=== PATIENT | male | born 1985 | race Caucasian/White ===

== ENCOUNTER 2017-10-27 18:58 | Inpatient (IN) | payer BC, OTHER ==
[~2017-10-27] VITALS: Ht 185.4 cm; Wt 78.0 kg
[2017-10-27 20:00] VITALS: BP 118/80
--- NOTE | 2017-10-27 20:10 | NUR ---
Pre-admission assessment Patient is a 32-year old, male, seen at intake, AAOx4, no SOB and with anxiety noted at this time. Discussed with patient admission policies of the unit. Patient is coherent and able to respond to questions appropriately. Patient reported that he is originally from [place], then moved to [place] and eventually ended up here in [facility]. Pt is ambulatory with steady gait. Pt reports that he has been using these substances daily: Heroin and Methamphetamine and weekly for Vicodin and Valium/Xanax. Vital signs taken and as follows: MV=239/78, P=97, O2 sat on RA=96%, RR=1, T=98.1. Pt verbalized instructions and teachings regarding disposal of narcotic and other controlled home meds, unit protocols such as taking of vital signs Q4H and handling and disposal of contraband. Addendum: 10/28/17 at 0139 by MARCUS SKAGGS RN RR=20
[2017-10-27] MEDS ORDERED: ONDANSETRON ODT 4 MG TAB.RAPDIS SL PRN (20:45)
[2017-10-27] MEDS ORDERED: METHOCARBAMOL 750 MG TABLET PO PRN (20:45)
[2017-10-27] MEDS ORDERED: MIRALAX 17 GM POWD.PACK PO PRN (20:45)
[2017-10-27] MEDS ORDERED: ONDANSETRON 4 MG/2 ML VIAL IM PRN (20:45)
[2017-10-27] MEDS ORDERED: LORAZEPAM 1 MG TABLET PO PRN ×2 (20:45)
[2017-10-27] MEDS ORDERED: MAG HYDROX/AL HYDROX/SIMETH 30 ML LIQUID UDC PO PRN (20:45)
[2017-10-27] MEDS ORDERED: diphenhydrAMINE 50 MG CAPSULE PO PRN (20:45)
[2017-10-27] MEDS ORDERED: BUPRENORPHINE HCL 2 MG TAB.SUBL SL PRN (20:45)
[2017-10-27] MEDS ORDERED: ACETAMINOPHEN 325 MG TABLET PO PRN (20:45)
[2017-10-27] MEDS ORDERED: CLONIDINE HCL 0.1 MG TABLET PO PRN (20:45)
[2017-10-27] MEDS ORDERED: LOPERAMIDE HCL 2 MG CAPSULE PO PRN (20:45)
[2017-10-27] MEDS ORDERED: MAGNESIUM HYDROXIDE 30 ML LIQUID UDC PO PRN (20:45)
[2017-10-27] MEDS ORDERED: LORAZEPAM 2 MG/1 ML VIAL IM PRN (20:45)
[2017-10-27] MEDS ORDERED: IBUPROFEN 600 MG TABLET PO PRN (20:45)
--- NOTE | 2017-10-27 20:45 | NUR ---
ADMISSION Patient is a 32-year old, male, admitted and escorted by BLACK TOP ROLLER at 2035 to unit. Patient appears intoxicated, verbalizing that he used around 1700 today (please see below for more details). Skin check done, no open skin noted. Patient denies Suicidal Ideation nor Homicidal Ideation. No edema noted. Pt is ambulatory with steady gait. Pt stands 6'1" and weighs 172 pounds per standing scale. Vital signs are as follows: BP-124/85, T-98.4, P-93, RR-20 and SPO2 on RA=98%. Patient is AAOx4 and with with anxiety and paranoia noted at this time. Pt verbalized, "I heard some people outside talking about. I don't like it."With flushed skin noted, especially on the face. Redirected patient and provided education. Lung sounds clear bilaterally upon auscultation. No cough noted and bowel sounds are present on all quadrants. PERRLA and pupils are 3 mm upon visual check. Pt reports being allergic to Amoxicillin, on Regular Diet and is Full Code. Pt denies any seizure history. Per pt, withdrawal symptoms are restless legs, anxiety, emotional volatility, depression, hot flushes, chills, goosebumps, generalized muscle pain, tremors and paranoia. Pt reports that he was sober for 9 months and relapsed 5 months ago due to issues with "everyday life and some relationships with family and friends." Pt informed that he is here to be detoxed "because my life is spiraling out of control and I'm scared I might sooner." Pt reports using these substance for the past 5 months: 1) Heroin 2-3 gms IV daily, last use was 10/27/2017 1700, 2 gms IV. 2) Vicodin 50 mg PO weekly, last use was 10/24/2017, 50 mg PO. 3) Methamphetamine 1-2 gms IV daily, last use was 10/27/2017 1700, 1 gm IV. 4) Valium/Xanax "variable amounts weekly" per pt. Pt stated that if he could not get Valium, he will use Xanax. Last use was 10/25/2017 and he took 70 mg of Valium. Patient verbalized the he does not take other substances besides the ones mentioned above. Patient informed PMHx of Anxiety, Depression, Tonsillectomy (12 yrs old) and Congenital Renal Agenesis. Pt unable to state year he was diagnosed with anxiety and depression. Pt denies overdose history. Per pt, he does not take any prescribed medications at home. No PCP nor Psych MD as of the moment. Patient reports vaping and if vape is not available, he smokes cigarettes, about 1 pack daily. Oriented patient to room and instructed with the use of the call light, placed within reach. Fall, universal, seizure and safety precautions implemented. No c/o significant pain at this time. All needs met. Information relayed to Dr. Stover. Patient refused PNA vaccine and Flu vaccine. COWS=10, CIWA=11. Will continue to monitor.
[2017-10-27] MEDS ORDERED: LORAZEPAM 1 MG TABLET PO ONE (21:00)
[2017-10-27 21:23] LABS: BASOPHILS % (AUTO) 0.6 % (0.0-2.0); EOSINOPHILS # (AUTO) 0.2 K/uL (0.0-0.7); EOSINOPHILS % (AUTO) 1.9 % (0.0-7.0); HEMATOCRIT 38.5 % (36.7-47.1); HEMOGLOBIN 13.3 g/dL (12.5-16.3); LYMPHOCYTES # (AUTO) 1.7 K/uL (20.0-40.0); LYMPHOCYTES % (AUTO) 19.7 % (20.5-51.5); MEAN CORPUSCULAR HEMOGLOBIN 30.4 uug (23.8-33.4); MEAN CORPUSCULAR HGB CONC 35 g/dL (32.5-36.3); MEAN CORPUSCULAR VOLUME 87.9 fL (73.0-96.2); MONOCYTES # (AUTO) 0.7 K/uL (2.0-10.0); MONOCYTES % (AUTO) 8.1 % (0.0-11.0); NEUTROPHILS # (AUTO) 6.1 K/uL (1.8-8.9); NEUTROPHILS % (AUTO) 69.7 % (38.5-71.5); PLATELET COUNT (AUTO) 280 K/uL (152-348); RED BLOOD CELL COUNT(AUTO) 4.38 MIL/uL (4.06-5.63); WHITE BLOOD COUNT (AUTO) 8.8 K/uL (3.6-10.2)
[2017-10-27 21:25] LABS: ALANINE AMINOTRANSFERASE 29 U/L (16-63); ALKALINE PHOSPHATASE 79 U/L (50-136); AMYLASE 22 U/L (25-115); ASPARTATE AMINOTRANSFERASE 28 U/L (15-37); BILIRUBIN,TOTAL 0.5 mg/dL (0.2-1.0); CARBON DIOXIDE 33 mmol/L (21-32); CHLORIDE 99 mmol/L (98-107); CREATININE 1.1 mg/dL (0.6-1.3); GLUCOSE 140 mg/dL (74-106); LIPASE 50 U/L (73-393); MAGNESIUM 1.8 mg/dL (1.8-2.4); TOTAL PROTEIN, SERUM 7.6 g/dL (6.4-8.2); UREA NITROGEN, BLOOD 18 mg/dL (7-18)
[2017-10-27 21:27] LABS: ETHANOL < 3 MG/DL (0-0)
[2017-10-27 21:36] LABS: THYROID STIMULATING HORMONE 0.789 mIU/mL (0.358-3.740)
[2017-10-28] VITALS: BP 114/68
[2017-10-28 00:37] LABS: *AMPHETAMINE, URINE POSITIVE (NEGATIVE); *BARBITURATE, URINE NEGATIVE (NEGATIVE); *CANNABINOID, URINE NEGATIVE (NEGATIVE); *COCCAINE, URINE NEGATIVE (NEGATIVE); *OPIATE, URINE POSITIVE (NEGATIVE); *PHENCYCLIDINE SCREEN,URINE NEGATIVE (NEGATIVE)
[2017-10-28 04:00] VITALS: BP 110/65
--- NOTE | 2017-10-28 07:20 | NUR ---
START OF SHIFT PATIENT IS A 32 YR OLD MALE ADMITTED 10/27/17 TO [facility] FOR WITHDRAWAL FROM OPIATES AND BENZODIAZEPINES. PRN MEDS GIVEN ON PM SHIFT: 2MG ATIVAN X 2 DOSES. LAST COWS 9 AND CIWA 9. PATIENT IS AWAKE AND ALERT , HE DECLINES PPD TEST AND STATES HE IS NOT READY TO START SUBUTEX YET HE IS NOT IN WITHDRAWAL OF YET. BED IN LOW LOCKED POSITION WITH SIDE RAILS UP X 2. PATIENT SLEPT FOR 4 HOURS LAST NIGHT. WILL CONTINUE TO FOLLOW MD PLAN OF CARE.
--- NOTE | 2017-10-28 07:30 | NUR ---
End of Shift Patient asleep on bed, but arousable. Pt continues to be anxious and with racing thoughts. Pt verbalized that he intermittently wakes up in between sleep because per pt, "I'm having weird dreams and I wake up startled and my muscled tense up." Pt noted to be emotional and easily overwhelmed. Pt with flushed skin. Fall, universal, seizure and safety prec in place. Call light within reach. Latest COWS=9, CIWA=9, slept for 4 hours. Endorsed to AM shift nurse for continuity of care.
[2017-10-28 08:00] VITALS: BP 127/59
[2017-10-28] MEDS ORDERED: TUBERCULIN,PURIF.PROT.DERIV. 5 TU/0.1 ML TEST ID ONE (09:00)
[2017-10-28] MEDS: FOLIC ACID 1 MG TABLET PO SCH (09:15)
[2017-10-28] MEDS: MULTIVITAMINS,THERAPEUTIC TABLET PO SCH (09:15)
--- NOTE | 2017-10-28 09:15 | NUR ---
PRN ATIVAN 1MG ATIVAN PO GIVEN FOR CIWA 9 , WILL REASSESS
--- NOTE | 2017-10-28 09:15 | NUR ---
PRN ATIVAN / IMMODIUM 1MG ATIVAN PO GIVEN FOR CIWA 9 COWS 11 IMMODIUM 4MG PO FOR DIARRHEA X 4 WILL MONITOR
[2017-10-28] MEDS: LOPERAMIDE HCL 2 MG CAPSULE PO PRN ×2 (09:19→14:08)
[2017-10-28] MEDS ORDERED: LORAZEPAM 1 MG TABLET PO PRN (10:15)
--- NOTE | 2017-10-28 10:15 | NUR ---
PRN ATIVAN 1MG PO EFFECTIVE, PT STATES HE FEELS LESS ANXIOUS AND IS ABLE TO REST,
--- NOTE | 2017-10-28 10:15 | NUR ---
REASSESS IMMODIUM PT STATES IMMODIUM 4MG PO HELPED AND THE DIARRHEA IS EASING OFF. WILL CONTINUE TO MONITOR
--- NOTE | 2017-10-28 10:41 | NUR ---
Client prompted client to come to all groups/activities today to engage with others and not be isolated in his room. Therapist encouraged client to try to share his feeling/thoughts so he does not build up feelings/thoughts which may negatively impact him. Therapist encouraged client to also meet with therapist if they feel they cannot cope with going to group so they can have one/one therapy session to help process feelings/thoughts.
[2017-10-28 12:00] VITALS: BP 136/78
--- NOTE | 2017-10-28 13:57 | NUR ---
PRN SUBUTEX 4MG SL AND ATIVAN 2MG PO GIVEN FOR COWS 17 AND CIWA 17 WILL REASSESS
[2017-10-28] MEDS: DICYCLOMINE HCL 20 MG TABLET PO PRN (14:08)
--- NOTE | 2017-10-28 14:57 | NUR ---
PRN REASSESS PRN ATIVAN AND SUBUTEX EFFECTIVE COWS 11 ( WAS 17 ) CIWA 11 ( WAS 17 )
[2017-10-28] MEDS: GABAPENTIN 300 MG CAPSULE PO SCH ×2 (15:01→22:02)
[2017-10-28 16:00] VITALS: BP 120/54
--- NOTE | 2017-10-28 18:23 | NUR ---
END OF SHIFT PATIENT IS A 32 YR OLD MALE ADMITTED 10/27/17 TO [facility] FOR WITHDRAWAL FROM OPIATES AND BENZODIAZEPINES. PRN MEDS GIVEN ON THIS SHIFT: SUBUTEX 4 MG , ATIVAN 1MG, ATIVAN 2MG, IMMODIUM 4MG X 2, BENTYL 20MG. PATIENT HAS STARTED WITHDRAWING AND PRESENTS WITH IRRITABILITY, RESTLESS LEGS, STOMACH CRAMPS, DIARRHEA HE DECLINED PPD TEST. LAST COWS 11 AND CIWA 11 @ 1600. BED IN LOW LOCKED POSITION WITH SIDE RAILS UP X 2. FLUID INTAKE THIS SHIFT 1600ML, 5 VOIDS AND 4 BM. WILL CONTINUE TO FOLLOW MD PLAN OF CARE.
--- NOTE | 2017-10-28 19:10 | NUR ---
START OF SHIFT Patient is a 32-year-old male admitted on 10/27/17 for heroin, vicodin, and benzo (valium & xanax) withdrawal, with concurrent meth use. Patient is scheduled to start a 4-day Subutex taper tomorrow, with available PRN Subutex and PRN Ativan. Patients last COWS was 11, last CIWA was 11, per day shift. Patient received PRN Subutex, PRN Ativan twice, PRN Imodium and PRN Bentyl; effective per day shift. Upon assessment, patient is in bed with eyes closed, sleeping. Respirations even and unlabored. Patient appears disheveled and unshaven, patients room is cluttered and unkempt with clothes scattered on the floor. Safety measures in place, side rails up x2, bed locked in low position, call light within reach. Will continue to monitor.
[2017-10-28 20:00] VITALS: BP 130/82
--- NOTE | 2017-10-28 20:00 | NUR ---
COWS AND CIWA DEFERRED 1999 COWS and CIWA deferred due to patient sleeping; to be assessed while patient is awake. Respirations are even and unlabored, 16/min. Safety measures in place, side rails up x2, bed locked in lowest position, call light within reach. Will continue to monitor.
[2017-10-28] MEDS: LORAZEPAM 1 MG TABLET PO PRN (22:07)
--- NOTE | 2017-10-28 22:07 | NUR ---
PRN ATIVAN Patient woke up around 2200. SN assessed and scored pt; COWS 8 and CIWA 10. PRN Ativan 1mg given PO for CIWA between 5-15 as ordered. Patient reports chills, body aches, and stomach cramps. Safety measures in place, call light within reach. Will monitor for effectiveness.
--- NOTE | 2017-10-28 23:07 | NUR ---
PRN ATIVAN REASSESSMENT Patient is resting in bed with eyes closed, sleeping. Unable to assess for effectiveness at this time, unable to score follow-up CIWA due to patient sleeping. Respirations are even and unlabored. Safety measures in place, call light within reach. Will continue to monitor.
[2017-10-29] VITALS: BP 116/80
--- NOTE | 2017-10-29 | NUR ---
COWS AND CIWA DEFERRED COWS and CIWA deferred due to patient sleeping; to be assessed while patient is awake. Patient has continued to sleep since start of shift. Respiations are even and unlabored, 14/min. Safety measures in place, side rails up x2, bed locked in lowest position, call light within reach. Will continue to monitor.
[2017-10-29] MEDS: LORAZEPAM 1 MG TABLET PO PRN ×2 (02:23→13:07)
--- NOTE | 2017-10-29 02:23 | NUR ---
PRN IMODIUM AND PRN ATIVAN Patient awoke around 0145 having wet the bed with a loose bowel movement. Patient immediately requested to shower after using the restroom. SN and EMR TRAINER cleaned and sanitized patient's bed and changed the linens. After patient showered, SN gave PRN Imodium 2mg PO at 0213. SN scored patient: COWS was 12 and CIWA was 12. PRN Ativan 1mg given PO for score between 5-15, as ordered. Patient's respirations are even and unlabored. Safety measures in place. Will continue to monitor.
[2017-10-29 04:00] VITALS: BP 96/58
--- NOTE | 2017-10-29 04:00 | NUR ---
COWS AND CIWA DEFERRED COWS and CIWA deferred due to patient sleeping; to be assessed while patient is awake. Respirations even and unlabored, 20/min. Safety measures in place, call light within reach. Will continue to monitor.
--- NOTE | 2017-10-29 07:02 | NUR ---
END OF SHIFT Patient is a 32-year-old male admitted on 10/27/17 for heroin, vicodin, and benzo (valium & xanax) withdrawal, with concurrent meth use. Patient is scheduled to start a 4-day Subutex taper today. Patients last COWS was 12, last CIWA was 12. Patient received PRN Ativan twice for elevated CIWA scores, PRN Imodium for LBM x1; PRN meds were effective. Patient slept for 9 hours, total intake 500 mL, void x1, stool x1. Safety measures in place, side rails up x2, bed locked in low position, call light within reach. Will endorse to day shift.
--- NOTE | 2017-10-29 07:35 | NUR ---
START OF SHIFT Pt is a 32 yr old male, admitted on 10/27/17 for opiate withdrawal and is to start on 4 day Subutex taper today. Received report from manager shift nurse. Pt received Ativan PRN x2 for s/s of w/d and Imodium PRN for diarrhea. Medication was effective. Pt is currently in bed sleeping with respirations even and unlabored. Skin is intact, warm and moist to touch. Safety precautions observed. Call light is within reach. Will continue to monitor.
[2017-10-29 08:04] VITALS: BP 110/68
[2017-10-29] MEDS: MULTIVITAMINS,THERAPEUTIC TABLET PO SCH (08:33)
[2017-10-29] MEDS: GABAPENTIN 300 MG CAPSULE PO SCH ×3 (08:33→21:01)
[2017-10-29] MEDS: FOLIC ACID 1 MG TABLET PO SCH (08:33)
[2017-10-29] MEDS: DICYCLOMINE HCL 20 MG TABLET PO PRN (08:33)
--- NOTE | 2017-10-29 08:36 | NUR ---
PRN GIVEN Pt c/o abdominal cramping. Bentyl 20mg PO PRN was given as ordered. Encouraged increase fluid intake. Will continue to monitor.
[2017-10-29] MEDS ORDERED: 4 DAY TAPER BUPRENORPHINE -SERENITY PROTOCOL SL PRN (09:00)
[2017-10-29] MEDS ORDERED: BUPRENORPHINE HCL 2 MG TAB.SUBL SL SCH (09:00)
--- NOTE | 2017-10-29 09:36 | NUR ---
PRN RE-ASSESSMENT Bentyl PRN was not effective. Pt continues to c/o abdominal pain. Will continue to monitor.
[2017-10-29 11:06] LABS: HEPATITIS B SURFACE AG Negative (Negative)
[2017-10-29 12:00] VITALS: BP 119/78
[2017-10-29] MEDS ORDERED: HYDROXYZINE PAMOATE 25 MG CAPSULE PO PRN (12:15)
--- NOTE | 2017-10-29 12:59 | NUR ---
NSG NOTES Pt c/o increase anxiety abdominal cramping and muscle aches. Restless legs is observed. Pt is become agitated and stating he does not feel well. Facial sweats are seen. COWS score is 20 and CIWA score is 14. Pt was offered Ativan 1mg PO PRN, Robaxin 750mg PO PRN, Motrin 600mg PO PRN and Clonidine 0.1 PO PRN to help with anxiety. Pt refused to take medication stating that does not help him. Notified Dr. Chen with new order for Subutex 4mg SL x1 now. New order was noted and carried out. Will continue to monitor.
[2017-10-29] MEDS ORDERED: BUPRENORPHINE HCL 2 MG TAB.SUBL SL ONE (13:00)
--- NOTE | 2017-10-29 13:08 | NUR ---
MEDICATION ADMINISTRATION Subutex 4mg SL x1 was administered for COWS score of 20. Medication noe well. Pt also agreed to take Ativan 1mg PO PRN for CIWA score of 14 and Clonidine 0.1mg PO PRN for anxiety, Robaxin 750mg PO and Motrin 600mg PO PRN was also given for s/s of w/d. Medication noe well. Will continue to monitor.
[2017-10-29] MEDS ORDERED: ACETAMINOPHEN ES 500 MG TABLET PO PRN (13:45)
[2017-10-29] MEDS ORDERED: KETOROLAC TROMETHAMINE 30 MG INJ IM PRN (13:45)
[2017-10-29] MEDS ORDERED: DICYCLOMINE HCL 20 MG TABLET PO PRN (14:00)
--- NOTE | 2017-10-29 14:13 | NUR ---
PRN RE-ASSESSMENT Subutex 4mg SL x1, Ativan 1mg PO PRN, Clonidine 0.1mg PO PRN, Robaxin 750mg PO PRN and Motrin 600mg PO PRN was effective. Pt states of feeling a "little bit better". Pt continues to experience anxiety and abdominal cramping. Pt is observed with facial sweats and restless legs. Pt denies any n/v or episodes of diarrhea. COWS score subsided from 20 to 15 and CIWA score subsided from 14 to 8. Pt was encouraged increase fluids. Safety precautiosn observed. Call light is within reach.
[2017-10-29] MEDS: LORAZEPAM 1 MG TABLET PO SCH ×3 (15:08→21:01)
[2017-10-29 16:00] VITALS: BP 106/67
[2017-10-29] MEDS: BUPRENORPHINE HCL 2 MG TAB.SUBL SL SCH ×2 (17:04→21:01)
--- NOTE | 2017-10-29 19:08 | NUR ---
END OF SHIFT Pt is a 32 yr old male, AA&Ox4. Pt was admitted on 10/27/17 for Opiate /Benzo withdrawal and was changed from a a 4 day Subutex to a 5 day Subutex taper as ordered. Pt also started on 4 day Ativan taper for s/s of w/d. Pt has been observed with increase anxiety and agitation during the day stating he does not feel well. Pt received Subutex 4mg SL x1 at 1300 for COWS score of 20, Medication was effective. Pt is still noted with increase anxiety and restless legs. Pt states of having abdominal cramping and cold/hot chills. Pt received Bentyl 20mg PO PRN at 0836, medication was not effective. Pt received Ativan 1mg PO PRN, Clonidine 0.1mg PO PRN, [id number] PO PRN, and Motrin 600mg PO PRN was given at 1307 for s/s of w/d. Medication was effective. Last COWS score was 16 and CIWA score was 15 at 1600. Pt was encouraged increase fluid intake for hydration. Safety precautions observed. Call light is within reach.
--- NOTE | 2017-10-29 19:10 | NUR ---
Start of Shift Patient Received. Patient is in bed sleeping. Breathing even and non labored. No signs of restlessness or discomfort noted. Per endorsement, Patient was started on 5 day Subutex and 4 day Ativan tapers. Patient was given a onetime dose of Subutex 4mg for increased COWS of 20 with medication noted to be effective. Patient also received PRN Bentyl, Ativan 1mg, Clonidine, Robaxin, Motrin with medications noted to be effective. Last noted COWS 16 and CIWA 15. All needs attended to promptly. Will continue plan of care as ordered.
[2017-10-29 20:58] VITALS: BP 113/73
[2017-10-29] MEDS: FAMOTIDINE 20 MG TABLET PO SCH (21:01)
[2017-10-30 00:23] VITALS: BP 99/52
[2017-10-30 04:08] VITALS: BP 101/63
--- NOTE | 2017-10-30 07:17 | NUR ---
End of Shift Patient is in bed sleeping. Breathing even and non labored. No signs of restlessness or discomfort noted. Patient is currently receiving 5 day Subutex and 4 day Ativan tapers. Patient is noted to be withdrawn due to increased signs and symptoms of withdrawal. He is also noted to be flat, blunt, easily irritable. Patient is noted with increased tremors, anxiety, agitation, and muscle spasms. His room is noted with clothes and blankets thrown on the floor, Food and food wrappers are also noted throughout room. No PRN medications administered. Encouraged patient to drink and snack as tolerated. Last noted COWS 11 and CIWA 12. All needs attended to promptly. Will endorse to continue plan of care as ordered.
[2017-10-30 08:00] VITALS: BP 90/60
--- NOTE | 2017-10-30 08:15 | NUR ---
START OF SHIFT: RECEIVED PT A/O X 4 SITTING UP LAYING IN BED. HIS MOOD IS ANGRY WITH A FLAT AFFECT. HE IS FIDGETY. POOR EYE CONTACT NOTED. SKIN IS MOIST. HE REPORTS BODY ACHES,IRRITABILITY,SWEATS,CHILLS AND ANXIETY. COWS 13 CIWA 11. ATIVAN /SUBUTEX TAPER IN PROGRESS TO MANAGE S/S OF W/D. HE STATES " I DON'T WANT TO BE HERE". HE ASKED" WHAT DO I HAVE TO DO TO GET OUT OF HERE?" ENCOURAGED PT TO STAY AND COMPLETE DETOX. PT EXPRESSED FRUSTRATION ABOUT THE AMOUNT OF FAILED ATTEMPTS TO GET CLEAN AND NUMEROUS TRIPS TO REHAB AND STATES HE FEELS HOPELESS AND REPORTS CRAVINGS TO GET HIGH. ENCOURAGED PT TO NOT ACT ON THOUGHTS TO LEAVE AND REMINDED HIM OF NEGATIVE CONSEQUENCES OF DRUG USE. MULTIDISCIPLINARY TEAM NOTIFIED ABOUT HIGH RISK OF AMA. ENCOURAGED PT TO ATTEND GROUPS AND ACTIVITIES TO IMPROVE COPING SKILLS AND PREVENT RELAPSE. WILL CONTINUE TO MONITOR AND OFFER SUPPORT.
[2017-10-30] MEDS: FOLIC ACID 1 MG TABLET PO SCH (08:36)
[2017-10-30] MEDS: MULTIVITAMINS,THERAPEUTIC TABLET PO SCH (08:36)
[2017-10-30] MEDS: FAMOTIDINE 20 MG TABLET PO SCH (08:36)
[2017-10-30] MEDS: GABAPENTIN 300 MG CAPSULE PO SCH (08:37)
[2017-10-30] MEDS ORDERED: LORAZEPAM 1 MG TABLET PO SCH (09:00)
[2017-10-30] MEDS ORDERED: BUPRENORPHINE HCL 2 MG TAB.SUBL SL SCH ×3 (09:00→15:00)
--- NOTE | 2017-10-30 10:44 | NUR ---
DESPITE MULTIPLE ATTEMPTS TO ENCOURAGE PT TO COMPLETE DETOX BY MULTIDISCIPLINARY TEAM. PT IS LEAVING AMA. HE DENIES S/I AND H/I AND STATES HE JUST DOES NOT FEEL READY TO DO THIS NOW. WILL CONTINUE WITH AMA PROCESS.
--- NOTE | 2017-10-30 10:55 | NUR ---
DISCHARGE AMA: PT REFUSED TO STAY AND COMPLETE DETOX DESPITE MULTIPLE ATTEMPTS FROM MULTIDISCIPLINARY STAFF TO INTERVENE. HE DENIES S/I AND H/I. HE STATES HE IS NOT READY TO DETOX AT THIS TIME AND HAS MADE UP HIS MIND TO LEAVE AMA. EDUCATED PT ON POTENTIAL CONSEQUENCES OF NOT COMPLETING DETOX. PT EXPRESSED VERBAL UNDERSTANDING OF EDUCATION. BELONGINGS RETURNED. A LIST OF COMMUNITY RESOURCES GIVEN TO PT. PT WAS ESCORTED OUT OF UNIT AT 1049.
[2017-10-31] MEDS ORDERED: LORAZEPAM 1 MG TABLET PO SCH (09:00)
[2017-10-31] MEDS ORDERED: BUPRENORPHINE HCL 2 MG TAB.SUBL SL SCH ×3 (09:00→15:00)
[2017-11-01] MEDS ORDERED: BUPRENORPHINE HCL 2 MG TAB.SUBL SL SCH ×2 (09:00)
[2017-11-01] MEDS ORDERED: LORAZEPAM 1 MG TABLET PO SCH (09:00)
[2017-11-02] MEDS ORDERED: BUPRENORPHINE HCL 2 MG TAB.SUBL SL SCH (09:00)
== END 2017-10-30 10:49 | disposition left against medical advice (07) | DRG 894 ==
LOC: SRC 18:58
PROVIDERS: ADMIT Internal Medicine; ATTEND Internal Medicine
PROC: HZ2ZZZZ Detoxification Services for Substance Abuse Treatment (ICD-10-PCS; principal; 2017-10-27)
PROC: HZ51ZZZ Individual Psychotherapy for Substance Abuse Treatment, Behavioral (ICD-10-PCS; 2017-10-29)
DX: F11.23 Opioid dependence with withdrawal (principal); Q60.0 Renal agenesis, unilateral; F15.23 Other stimulant dependence with withdrawal; F13.10 Sedative, hypnotic or anxiolytic abuse, uncomplicated; F32.9 Major depressive disorder, single episode, unspecified; F41.9 Anxiety disorder, unspecified; Z59.0 Homelessness; F17.210 Nicotine dependence, cigarettes, uncomplicated; Z59.1 Inadequate housing
CPT/HCPCS: 36415; 80307; 80324; 80346; 80361; 83690; 83735; 84443; 85025; 86592; 86705; 86803; 87340; 87806; G0480